=== PATIENT | female | born 1925 | race Caucasian/White ===

== ENCOUNTER 2017-03-27 11:48 | Inpatient (IN) ==
--- NOTE | 2017-03-27 13:16 | CT ---
EXAM: CT chest without contrast HISTORY: Pain COMPARISON: None TECHNIQUE: CT chest performed without intravenous contrast. Coronal and sagittal reformatted images obtained. FINDINGS: Thyroid and thoracic inlet appear normal. Heart normal in size. Coronary calcifications. No pericardial effusion. Aorta normal in caliber. Moderate atherosclerosis. Bilateral renal cysts . Visualized portion upper abdomen demonstrates no acute abnormality. No acute abnormalities of the bones. Degenerative change in the spine. Small stable sclerotic focus right posterior ninth rib, li danay bone island. Mild chronic loss of height L1. Central airway patent. No airspace consolidation . No pleural effusion. No pneumothorax. Mild bibasilar subsegmental atelectasis and/or scarring. Mild chronic elevation left hemidiaphragm. IMPRESSION: 1. Mild bibasilar subsegmental atelectasis and/or scarring. No airspace consolidation. 2. Coronary calcifications. Atherosclerosis.
--- NOTE | 2017-03-27 14:05 | ED.PDOC ---
General ED Provider: Dr. MARTINE FONSECA Chief Complaint: Chest Wall Injury/Pain Stated Complaint: left sided chest wall pain Time Seen by Physician: 12:00 (left chest wall pain entirely reproduceable) Mode of Arrival: Ambulance Information Source: Patient, EMT Exam Limitations: No limitations Primary Care Provider: NELL UGARTE Nursing and Triage Documentation Reviewed and Agree: Yes Reviewed sepsis parameters & appropriate labs ordered?: Yes System Inflammatory Response Syndrome: Not Applicable Sepsis Protocol: For patient's 13 years and over: Temp is 96.8 and below OR 101 and greater Pulse >90 BPM Resp >20/minute Acutely Altered Mental Status Are patient's symptoms suggestive of a new infection, such as: -Pneumonia -Skin, Soft Tissue -Endocarditis -UTI -Bone, Joint Infection -Implantable Device -Acute Abdominal Infection -Wound Infection -Meningitis -Blood Stream Catheter Infection -Unknown System Inflammatory Response Syndrome: Not Applicable Cardiovascular Complaint Exam - Chest Pain Complaint/Exam Onset: Gradual Duration: present x 1 week Symptoms Are: Still present Timing: Constant Length of Chest Pain Episodes: constant Initial Severity: Mild Current Severity: Mild Location: Reports: Discrete (left chest reproduceable) Pain Radiates: Reports: None Character: Reports: Aching Aggravating: Reports: None Alleviating: Reports: None Associated Signs and Symptoms: Denies: Diaphoresis, Nausea, Vomiting, Fever, Palpitations, Cough, Hemoptysis, Back pain, Abdominal pain, Dizziness, Short of air, Calf pain, Calf swelling Related History: Reports: Similar episode AMI/ACS Risk Factors: Reports: Hypertension TAD Risk Factors: Reports: Hypertension Pulmonary Embolism Risk Factors: Reports: None Prior Care for this Complaint: No Recent Stress Test: No Recent Echo/LV Function: No JVD Present: No Subcutaneous Emphysema Present: No Diminshed Breath Sounds: No Reproducible Chest Wall Pain: No Bilateral Pulses Present: No Unequal Pulses Noted: No If Risk Factors for AMI/ACS Consider: EKG, Cardiac Enzymes Differential Diagnoses: Stable Angina, CHF, GI Diseasae Quality Indicators For Acute ID or Cardiac Chest Pain: EKG in 10min. Review of Systems - Review Of Systems Constitutional: Reports: No symptoms Eyes: Reports: No symptoms Ears, Nose, Mouth, Throat: Reports: No symptoms Respiratory: Reports: No symptoms Cardiac: Reports: Chest pain GI: Reports: No symptoms : Reports: No symptoms Musculoskeletal: Reports: No symptoms Skin: Reports: No symptoms Neurological: Reports: No symptoms Endocrine: Reports: No symptoms Hematologic/Lymphatic: Reports: No symptoms All Other Systems: Reviewed and Negative Past Medical History - Past Medical History Previously Healthy: Yes Endocrine: Reports: Dyslipidemia Cardiovascular: Reports: Hypertension, A-Fib, Other (irreg. hb) Respiratory: Reports: None Hematological: Reports: None Gastrointestinal: Reports: GERD (medications) Genitourinary: Reports: None Neuro/Psych: Reports: Other Musculoskeletal: Reports: Arthritis Cancer: Reports: None Last Menstrual Period: NA Other Pertinent Past Medical History: muscular distrophy (Ruth Charcot Tooth) - Surgical History General Surgical History: Reports: Hysterectomy, Appendectomy, Other (bilateral cataract removal, polypectomy), Unknown - Family History Family History: Reports: Unknown - Social History Smoking Status: Never smoker Hx Substance Use: No Alcohol Screening: None - Immunizations Tetanus Shot up to Date: No Physical Exam - Physical Exam Appearance: Well-appearing, No pain distress, Well-nourished Eyes: FRANCISCO JAVIER, EOMI, Conjunctiva clear ENT: Ears normal, Nose normal, Oropharynx normal Respiratory: Airway patent, Breath sounds clear, Breath sounds equal, Respirations nonlabored Cardiovascular: RRR, Pulses normal, No rub, No murmur GI/: Soft, Nontender, No masses, Bowel sounds normal, No Organomegaly Musculoskeletal: Normal strength, ROM intact, No edema, No calf tenderness Skin: Warm, Dry, Normal color Neurological: Sensation intact, Motor intact, Reflexes intact, Cranial nerves intact, Alert, Oriented Psychiatric: Affect appropriate, Mood appropriate Interpretation - Radiology Interpretation Radiology Interpretation By: Radiologist Radiology Results: No acute changes - [facility] Rate: Normal Rhythm: Sinus Ectopy: None - EKG Interpretation Rate: Normal Rhythm: Sinus Ectopy: None [place]: NL ST Segment: Normal Physician Notification - Case Discussed Physician Notified: 0 Critical Care Note - Critical Care Note Total Time (mins): 0 Course - Course Hematology/Chemistry: 03/27/17 12:25 03/27/17 12:25 Orders, Labs, Meds: Lab Review 03/27/17 03/27/17 03/27/17 12:25 12:25 12:25 WBC 7.09 RBC 4.04 L Hgb 14.3 Hct 41.4 MCV 102.5 H MCH 35.4 H MCHC 34.5 RDW Coeff of Agueda 11.9 Plt Count 230 Immature Gran % (Auto) 0.8 Neut % (Auto) 71.0 Lymph % (Auto) 19.0 Emery % (Auto) 7.5 Eos % (Auto) 1.4 Baso % (Auto) 0.3 Immature Gran # (Auto) 0.1 Neut # 5.0 Lymph # 1.4 Emery # 0.5 Eos # 0.1 Baso # 0.0 Sodium 139 Potassium 3.7 Chloride 101 Carbon Dioxide 33 H Anion Gap 8.7 BUN 17 Creatinine 0.70 Estimated GFR (MDRD) 79.00 BUN/Creatinine Ratio 24.28 Glucose 103 Calcium 10.6 H Total Bilirubin 0.8 AST 23 ALT 19 Alkaline Phosphatase 95 Total Creatine Kinase 34 Troponin I Pending B-Natriuretic Peptide 85 Total Protein 6.7 Albumin 4.2 Globulin 2.5 Albumin/Globulin Ratio 1.68 Influenza A (Rapid) Influenza B (Rapid) 03/27/17 12:50 WBC RBC Hgb Hct MCV MCH MCHC RDW Coeff of Agueda Plt Count Immature Gran % (Auto) Neut % (Auto) Lymph % (Auto) Emery % (Auto) Eos % (Auto) Baso % (Auto) Immature Gran # (Auto) Neut # Lymph # Emery # Eos # Baso # Sodium Potassium Chloride Carbon Dioxide Anion Gap BUN Creatinine Estimated GFR (MDRD) BUN/Creatinine Ratio Glucose Calcium Total Bilirubin AST ALT Alkaline Phosphatase Total Creatine Kinase Troponin I B-Natriuretic Peptide Total Protein Albumin Globulin Albumin/Globulin Ratio Influenza A (Rapid) Negative by naat Influenza B (Rapid) Negative by naat Orders Category Date Time Status EKG-(ED ONLY) Stat CARDIO 03/27/17 12:13 Completed B-TYPE NATRIURETIC PEPTIDE Stat LAB 03/27/17 12:25 Completed CBC W/ AUTO DIFF Stat LAB 03/27/17 12:25 Completed COMPREHENSIVE METABOLIC PANEL Stat LAB 03/27/17 12:25 Results CREATINE KINASE Stat LAB 03/27/17 12:25 Results FLU A/B MOLECULAR Stat LAB 03/27/17 12:50 Completed TROPONIN I Stat LAB 03/27/17 12:[address] CHEST W/O CONTRAST Stat RADS 03/27/17 12:13 Completed Vital Signs: Temp Pulse Resp BP Pulse Ox 03/27/17 11:51 98.4 F 74 16 153/76 H 98 CHADWICK Risk Score CHADWICK Risk Score: Risk Score Odds of by 30D 0 0.1 (0.1-0.2) 1 0.3 (0.2-0.3) 2 0.4 (0.3-0.5) 3 0.7 (0.6-0.9) 4 1.2 (1.0-1.5) 5 2.2 (1.9-2.6) 6 3.0 (2.5-3.6) 7 4.8 (3.8-6.1) Departure - Departure Time of Disposition: 14:06 Disposition: ADMITTED INPATIENT Discharge Problem: Chest pain Qualifiers: Chest pain type: unspecified Qualified Code(s): R07.9 - Chest pain, unspecified Instructions: Angina (ED) Condition: Good Pt referred to PMD for follow-up: Yes IPMP verified?: Yes Additional Instructions: Please call your Family Physician as soon as possible to schedule a follow-up appointment. Allergies/Adverse Reactions: Allergies No Known Allergies Allergy (Verified 03/27/17 12:02) Home Medications: Ambulatory Orders Brimonidine Tartrate Opth [Alphagan P 0.15%] 1 drop INTRAOCULA BEDTIME 03/14/14 Calcium Carbonate/Vitamin D3 [Calcium 600 + Vit D Caplet] 600 unit PO BID Olmesartan/Hydrochlorothiazide [Benicar Hct 40-25 mg Tablet] 1 each PO DAILY 06/23 Potassium Chloride [Klor-Con 10] 10 meq PO DAILY 03/14/14 Travoprost Opth [Travatan Z] 1 drop INTRAOCULA BEDTIME 03/14/14 Sotalol HCl [Sotalol] 40 mg PO BID 03/24/14 Magnesium Hydroxide [Milk of Magnesia] 30 ml PO DAILY PRN 04/25/14 Pravastatin Sodium 80 mg PO BEDTIME 04/25/14 Pantoprazole Sodium [Protonix] 40 mg PO DAILY 06/01/14 Bepotastine Besilate [Bepreve] 1 drop OP BEDTIME 10/12/15 Multivit-Min/FA/Lycopen/Lutein [Centrum Silver Tablet] 1 each PO DAILY 10/12/15 Amlodipine Besylate [Norvasc] 5 mg PO BEDTIME #30 tablet 02/21/16
[2017-03-27 17:42] VITALS: BMI 22.2
[2017-03-27] MEDS: SODIUM CHLORIDE 1,000 ML IV SCH (18:00)
[2017-03-27] MEDS ORDERED: DECADRON 4 MG/ML SDV IM STA (19:41)
[2017-03-27] MEDS ORDERED: NON-FORMULARY MEDICATION (Pravastatin Sodium [Pravastatin Sodium] 80 MG) PO SCH (21:00)
[2017-03-27] MEDS ORDERED: [UNRECOGNIZED DRUG - OTHER] INTRAOCULA SCH (21:00)
[2017-03-27] MEDS: BETAPACE PO SCH (22:05)
[2017-03-27] MEDS: NORVASC PO SCH (22:06)
[2017-03-27] MEDS: PRAVACHOL PO SCH (22:06)
[2017-03-27] MEDS: TORADOL IVP SCH (22:06)
[2017-03-27] MEDS: TRAVATAN Z OP SCH (22:07)
[2017-03-27] MEDS: BRIMONIDINE TARTRATE 0.2% OPTH SOL OP SCH (22:07)
[2017-03-27] MEDS: BEPOTASTINE BESILATE OP SCH (22:08)
[2017-03-28] MEDS: TORADOL IVP SCH ×3 (04:15→22:21)
[2017-03-28] MEDS: PROTONIX PO SCH (07:48)
[2017-03-28] MEDS ORDERED: NON-FORMULARY MEDICATION (Potassium Chloride [Klor-Con 10] 10 MEQ) PO SCH (09:00)
[2017-03-28] MEDS ORDERED: NON-FORMULARY MEDICATION (Olmesartan/Hydrochlorothiazide [Benicar Hct 40-25 Mg Tablet] 1 E PO SCH (09:00)
[2017-03-28] MEDS: BETAPACE PO SCH ×2 (09:31→21:50)
[2017-03-28] MEDS: HYDROCHLOROTHIAZIDE PO SCH (09:31)
[2017-03-28] MEDS: BENICAR PO SCH (09:31)
--- NOTE | 2017-03-28 10:06 | PCM.PROG ---
Attending Provider: ATTENDING PROVIDER: Dr. NELL UGARTE This patient is seen with Charlette Rojas, Nurse Practitioner. DATE OF SERVICE: 03/28/17 SUBJECTIVE: This 89 year old WHITE/ F was hospitalized 03/27/17. The patient is sitting up in bed eating breakfast. She states pain is improved, chest pain is atypical more like sternal pain. The patient had a fall on 03/13/17. CT scan was normal. No rib x-ray done. No shortness of breath. REVIEW OF SYSTEMS: CONSTITUTIONAL: Weakness. No night sweats. No fever or chills. HEENT: Eyes: No visual changes. No eye pain. No eye discharge. ENT: No runny nose. No epistaxis. No sinus pain. No odynophagia. No congestion. RESPIRATORY: No cough, no congestion. No hemoptysis. No shortness of breath. CARDIOVASCULAR: No angina symptoms. No CHF symptoms. No atypical chest pain for CAD. No palpitations. No orthopnea.. GASTROINTESTINAL: No abdominal pain. No nausea or vomiting. No diarrhea or constipation. No hematemesis. No hematochezia. GENITOURINARY: No urgency. No frequency. No dysuria. No hematuria. No obstructive symptoms. No discharge. No pain. No significant abnormal bleeding. MUSCULOSKELETAL: Muscular pain. NEUROLOGICAL: Awake, alert, oriented to time, place and person. No headache. No neck pain. No syncope. No seizures. No dizziness. PSYCHIATRIC: Not anxious. No depression. No suicidal thoughts. No homicidal thoughts. SKIN: No rash. No lesions. No wounds. ENDOCRINE: No unexplained weight loss. No weight gain. HEMATOLOGIC/LYMPHATIC: No anemia. No purpura. No petechiae. No prolonged or excessive bleeding. No palpable lymph nodes. PHYSICAL EXAMINATION: GENERAL: The patient is awake, alert and oriented, lying in bed in no distress. VITAL SIGNS: Temperature 97.0 F, Pulse 68, Respiratory Rate 24, BP 146/72, Pulse Ox 96% HEENT: Head normocephalic, atraumatic. Eyes: Extraocular muscles are intact. Pupils are equal, round and reactive to light and accommodation. Ears: No lesions. Nose appeared normal. Throat: No exudate or erythema. NECK: Supple. No JVD, no carotid bruit. No lymphadenopathy or thyromegaly. LUNGS: Diminished breath sounds bilaterally. Clear to auscultation. Percussion note normal. Chest symmetrical. HEART: S1, S2, no S3. No murmurs. No cyanosis or clubbing. No ascites. Pulses: Dorsalis pedis and posterior tibial pulses +1 to +2 both sides. ABDOMEN: Soft. Non-tender. Bowel sounds active. No CVA tenderness. No mass felt. EXTREMITIES: No edema. Full range of motion of all extremities, equal. NEUROLOGIC: Leg weakness due to muscular dystrophy. No focal deficit. Cranial nerves II through XII are grossly intact. No headache, no double vision or headache. SKIN: Not dry. Intact. Turgor-normal. LYMPHATIC: No palpable lymph nodes/no lymphedema. MUSCULOSKELETAL: Normal joints with no swelling. Muscle tone is normal. LAB REVIEW: 03/28/17 04:30 03/28/17 04:30 03/28/17 04:30: Sodium 137, Potassium 3.7, Chloride 102, Carbon Dioxide 24 D, Anion Gap 14.7, BUN 18, Creatinine 0.60, Estimated GFR (MDRD) 94.00, BUN/ Creatinine Ratio 30.00, Glucose 166 H D, Calcium 9.8, Total Bilirubin 0.7, AST 19, ALT 18, Alkaline Phosphatase 83, Total Protein 6.3, Albumin 4.0, Globulin 2.3, Albumin/Globulin Ratio 1.74 03/28/17 04:30: WBC 5.03, RBC 3.81 L, Hgb 13.4, Hct 39.6, MCV 103.9 H, MCH 35.2 H, MCHC 33.8, RDW Coeff of Agueda 11.9, Plt Count 169, Immature Gran % (Auto) 0.6, Neut % (Auto) 83.3, Lymph % (Auto) 14.5, [place] % (Auto) 1.2, Eos % (Auto) 0.2, Baso % (Auto) 0.2, Immature Gran # (Auto) 0.0, Neut # 4.2, Lymph # 0.7, [place] # 0.1 L, Eos # 0.0, Baso # 0.0 03/28/17 04:30: Total Creatine Kinase 23, Troponin I < 0.0100 03/27/17 20:00: Total Creatine Kinase 27, Troponin I 0.0140 ASSESSMENT: 1. Sternal pain 2. S/P fall 3. Generalized weakness due to muscular dystrophy PLAN: 1. X-ray of bilateral ribs Plan and coordination of the patient's care discussed in the presence of Medicinal Plant Picker and nurse. CONDITION: Stable SCRIBED BY: ARA JEFFERSON Yard Pilot scribed while in presence of service performed by Dr. Ugarte/Charlette Rojas APRN on 03/28/17 ([id number])
[2017-03-28] MEDS: MICRO-K CAP PO SCH (12:10)
--- NOTE | 2017-03-28 12:30 | DI ---
EXAM: Bilateral ribs HISTORY: Bilateral rib pain following a fall COMPARISON: None TECHNIQUE: Multiple views bilateral ribs were performed FINDINGS: No rib fracture identified. No visible pneumothorax. IMPRESSION: No rib fracture identified.
--- NOTE | 2017-03-28 15:49 | RS.OTINEVL ---
Subjective - Patient information Date of Evaluation: 03/28/17 Date of Arrival on Unit: 03/27/17 Admitted From:: Home Usual Living Arrangement: Alone Living Arrangement Comments: pt has paid caregivers 7 am to 7 pm and is alone the rest of time. [facility] staff provides meals. Home Environment: Level/No stairs Medical History: Hypertension Medical History Comments:: afib, GERD, muscular dystrophy charcot tooth, LATEX ALLERGY?: No Surgical History: Hysterectomy Medications: see chart Subjective Information/ Patient Comments:: "I have to have help to move or transfer. If I could get to where I could transfer better it would be good." - Level of function Prior to this admission, the patient could do the following:: Partially Dependent Ambulation Abilities prior to this admission: Pt has assistance in her assisted living apartment 7 a.m. to 7 p.m. Pt requires assistance with ADLS. Current Equipment Used at Home: electric w/c, shoe braces Pain Assessment - Pain Pain Score: 7 Side: left Pain Location Body Site: Ribs Pain Aggravating Factors: Changing Position Pain Alleviating Factors: Medication, Position Change Interventions - Objective Patient Orientation: Person, Place, Time, Situation Current Interventions: IV's, Telemetry Observation: Pt is reluctant to complete transfers today due to her rib pain. Pt wants to wait until results are back from her x-ray. Pt has atrophy in BLE due to Muscular dystrophy. Interventions - ROM Right Upper Extremity AROM: WFL's Left Upper Extremity AROM: WFL's - Strength Right Upper Extremity Strength: Mild Weakness Left Upper Extremity Strength: Mild Weakness - Sensation Right Upper Extremity Sensation: Intact/Normal Left Upper Extremity Sensation: Intact/Normal Balance - Sitting Balance Static Sitting Balance: Fair Dynamic Sitting Balance: Fair ADL Skills - Grooming Grooming: Min Assist - Bathing Bathing UE: Min Assist Bathing LE: Max Assist - Dressing Dressing UE: Min Assist Dressing LE: Max Assist - Toilet Management Toileting Management: Max Assist Functional Mobility - Bed Mobility Rolling R/L: Min Assist Scooting: Min Assist Supine to Sit: CGA Sit to Supine: Min Assist - Transfers Sit to Stand: Not Tested Stand to Sit: Not Tested Stand Pivot Transfers: Not Tested - Ambulation Assistance needed with Ambulation: Not Tested - Safety Awareness Safety Awareness: Good Additional Treatment Performed - Time with patient Total treatment time: 32 Activities Patient Interests:: Watching Television, Visiting/Socializing Patient Education Patient Education: Education of diagnosis, Home Safety, Education of Plan of Care Teaching Recipient: Patient Teaching Methods: Discussion Assessment Problem List:: Decreased level of function Rehab Potential: Good Further Therapy Indicated?: Yes Short Term Goals - Goals GOAL 1: Pt to tolerate stand pivot transfer moderate assist of 2 from EOB to chair. Goal to be met by: 04/04/17 GOAL 2: Pt to increase strength of BUE to 4/5. Goal to be met by: 04/04/17 Progress towards goal: No Change GOAL 3: Pt to increase toileting to moderate assistance. Goal to be met by: 04/04/17 Senior Military Analyst Goals GOAL 1: Pt to tolerate stand pivot transfer CGA from EOB to chair. Goal to be met by: 04/10/17 GOAL 2: Pt to increase strength of BUE to 4+/5. Goal to be met by: 04/10/17 GOAL 3: Pt to increase toileting to minimal assistance. Goal to be met by: 04/10/17 Plan Plan of Care: Therapeutic EX, Neuromuscular Re-Educ, Therapeutic Activity, Self- Care/Home Management Frequency of Treatment: 1-2 X day, as tolerated Duration of Treatment: 2 Weeks Anticipated Discharge Destination: Home Has the Physician been added for Co-signature?: Yes
--- NOTE | 2017-03-28 16:37 | RS.PTINEVL ---
Subjective - Patient information Date of Evaluation: 03/28/17 Date of Arrival on Unit: 03/27/17 Admitted From:: Home Diagnosis: chest wakk njury, Usual Living Arrangement: Alone Living Arrangement Comments: pt has paid caregivers 7 am to 7 pm and is alone the rest of time. [employer] staff provides meals. Home Environment: Level/No stairs Medical History: Hypertension Medical History Comments:: afib, GERD, muscular dystrophy charcot tooth, LATEX ALLERGY?: No Surgical History: Hysterectomy Medications: see chart Subjective Information/ Patient Comments:: pt states she had a fall on 03/13/17 and has had to have paid caregivers since the fall to assist with bathing, transfers, etc. - Level of function Abilities prior to this admission: pt had been able to transfer w/c to/from bed independently prior to 03/13/17. Prior to admit pt required assist of 1-2 for all transfers. Current Level of Function: Dependent Current Equipment Used at Home: w/c, rwx, power w/c, B AFO's Pain Assessement - Location ribs Description: Acute Intensity: 5 Pain Behavior: Guarding, Grasping Site, Rubbing Site, Facial Grimacing Pain Aggravating Factors: Changing Position, Exercise/Activity Pain Alleviating Factors: Medication Interventions - Objective Patient Orientation: Person, Place, Time, Situation Current Interventions: Telemetry Range of Motion - ROM Right Upper Extremity AROM: WFL's Left Upper Extremity AROM: WFL's Right Lower Extremity AROM: Slight limitation Left Lower Extremity AROM: Slight limitation Comments:: slight decrease hip ext Muscle Strength - Muscle Strength Right Upper Extremity Strength: Mild Weakness (grossly 4+/5) Left Upper Extremity Strength: Mild Weakness (grossly 4+/5) Right Lower Extremity Strength: Severe Weakness (hip flex 3-/5, knee flex 3-/5, ext 2+/5, ankle DF/PF no active mvmt) Left Lower Extremity Strength: Severe Weakness (hip flex 3-/5, knee flex 3-/5, ext 2+/5, ankle DF/PF no active mvmt) Sensation - Sensation Right Upper Extremity Sensation: Intact/Normal Left Upper Extremity Sensation: Intact/Normal Right Lower Extremity Sensation: Intact/Normal Left Lower Extremity Sensation: Intact/Normal Palpation Palpation Findings: Tenderness Comments:: B ribs Balance - Sitting Balance and Reactions Static Sitting Balance: Good (pt unable to stand at this time.) Dynamic Sitting Balance: Good Sitting Equilibrium Reactions: Within Normal Limits Left, Within Normal Limit Right Sitting Protective Reactions: Within Normal Limits Left, Within Normal Limit Right Functional Mobility - Bed Mobility Rolling R/L: Min Assist Scooting: Min Assist Supine to Sit: Min Assist Sit to Supine: Min Assist - Transfers Comments:: sit to/from stand not tested due to patient request due to pain in ribs. - Safety Awareness Safety Awareness: Fair Treatment time - Time with patient Total treatment time: 32 Patient Education - Education Patient Education: Home Safety, Activity Modification, Education of Plan of Care Teaching Recipient: Patient Teaching Methods: Discussion (Long discussion with patient regarding home safety as well as POC ) Assessment - Assessment Problem List:: Decreased level of function, Requires training/education, Decreased safety/Risk of falls, Weakness, Pain limits previous level of function Rehab Potential: Good Further Therapy Indicated?: Yes Comments: Feel pt may benefit from use of sliding board to aide in transfers. Short Term Goals GOAL #1: pt demonstrate independence with rolling and scooting up in bed. Goal to be met by: 03/31/17 GOAL #2: pt transfer sup to/from sit CGA, sit to/from stand mod to max of 2 Goal to be met by: 03/31/17 GOAL #3: Transfer bed to/from chair with sliding board with mod of 2 Goal to be met by: 03/31/17 Half-Way Goals GOAL #1: pt transfer sup to/from sit SBA sit to/from stand mod x 1 Goal to be met by: 04/03/17 GOAL #2: pt transfer bed to/from chair with sliding board with mod x 1 Goal to be met by: 04/03/17 GOAL #3: maintain dyn sitting balance reaching across midline and with resistance Goal to be met by: 04/03/17 Plan Plan of Care: Therapeutic EX, Therapeutic Activity, Self-Care/Home Management Frequency of Treatment: 1-2 X day, as tolerated Duration of Treatment: 6 days Anticipated Discharge Destination: Home Has the Physician been added for Co-signature?: Yes
[2017-03-28] MEDS: SODIUM CHLORIDE 1,000 ML IV SCH (19:16)
[2017-03-28] MEDS: BRIMONIDINE TARTRATE 0.2% OPTH SOL OP SCH (21:50)
[2017-03-28] MEDS: TRAVATAN Z OP SCH (21:50)
[2017-03-28] MEDS: PRAVACHOL PO SCH (21:51)
[2017-03-28] MEDS: NORVASC PO SCH (21:51)
[2017-03-28] MEDS: BEPOTASTINE BESILATE OP SCH (21:52)
[2017-03-29] MEDS: PROTONIX PO SCH (05:57)
[2017-03-29] MEDS: TORADOL IVP SCH ×2 (05:57→13:08)
[2017-03-29] MEDS: HYDROCHLOROTHIAZIDE PO SCH (08:36)
[2017-03-29] MEDS: BENICAR PO SCH (08:37)
[2017-03-29] MEDS: MICRO-K CAP PO SCH (08:37)
[2017-03-29] MEDS: BETAPACE PO SCH (08:37)
[2017-03-29] MEDS ORDERED: MIRALAX PO PRN (09:24)
--- NOTE | 2017-03-29 10:32 | PCM.PROG ---
Attending Provider: ATTENDING PROVIDER: Dr. NELL TOBIN This patient is seen with Charlette Rojas, Nurse Practitioner. DATE OF SERVICE: 03/29/17 SUBJECTIVE: This 89 year old WHITE/ F was hospitalized 03/27/17. The patient is sitting up in bed, alert. She states pain is about the same. X-rays and CT scans are normal. REVIEW OF SYSTEMS: CONSTITUTIONAL: No night sweats. Weakness. No fever or chills. HEENT: Eyes: No visual changes. No eye pain. No eye discharge. ENT: No runny nose. No epistaxis. No sinus pain. No odynophagia. No congestion. RESPIRATORY: No cough, no congestion. No hemoptysis. No shortness of breath. CARDIOVASCULAR: No angina symptoms. No CHF symptoms. No atypical chest pain for CAD. No palpitations. No orthopnea.. GASTROINTESTINAL: No abdominal pain. No nausea or vomiting. No diarrhea or constipation. No hematemesis. No hematochezia. GENITOURINARY: No urgency. No frequency. No dysuria. No hematuria. No obstructive symptoms. No discharge. No pain. No significant abnormal bleeding. MUSCULOSKELETAL: Bilateral leg weakness due to atrophy. NEUROLOGICAL: Awake, alert, oriented to time, place and person. No headache. No neck pain. No syncope. No seizures. No dizziness. PSYCHIATRIC: Not anxious. No depression. No suicidal thoughts. No homicidal thoughts. SKIN: No rash. No lesions. No wounds. ENDOCRINE: No unexplained weight loss. No weight gain. HEMATOLOGIC/LYMPHATIC: No anemia. No purpura. No petechiae. No prolonged or excessive bleeding. No palpable lymph nodes. PHYSICAL EXAMINATION: GENERAL: The patient is awake, alert and oriented, sitting in bed in no distress. VITAL SIGNS: Temperature 96.5 F, Pulse 61, Respiratory Rate 16, BP 161/76, Pulse Ox 97% HEENT: Head normocephalic, atraumatic. Eyes: Extraocular muscles are intact. Pupils are equal, round and reactive to light and accommodation. Ears: No lesions. Nose appeared normal. Throat: No exudate or erythema. NECK: Supple. No JVD, no carotid bruit. No lymphadenopathy or thyromegaly. LUNGS: Diminished breath sounds bilaterally. Clear to auscultation. Percussion note normal. Chest symmetrical. HEART: S1, S2, no S3. No murmurs. No cyanosis or clubbing. No ascites. Pulses: Dorsalis pedis and posterior tibial pulses +1 to +2 both sides. ABDOMEN: Soft. Non-tender. Bowel sounds active. No CVA tenderness. No mass felt. EXTREMITIES: No edema. Full range of motion of all extremities, equal. NEUROLOGIC: No focal deficit. Cranial nerves II through XII are grossly intact. No headache, no double vision or headache. SKIN: Not dry. Intact. Turgor-normal. LYMPHATIC: No palpable lymph nodes/no lymphedema. MUSCULOSKELETAL: Normal joints with no swelling. Muscle tone is normal. LAB REVIEW: 03/29/17 05:30 03/29/17 05:30 03/29/17 05:30: Sodium 138, Potassium 3.5, Chloride 102, Carbon Dioxide 28, Anion Gap 11.5, BUN 24 H, Creatinine 0.78, Estimated GFR (MDRD) 70.00, BUN/ Creatinine Ratio 30.76, Glucose 117 H, Calcium 9.5, Total Bilirubin 0.6, AST 19 , ALT 18, Alkaline Phosphatase 77, Total Protein 6.4, Albumin 3.4, Globulin 3.0 , Albumin/Globulin Ratio 1.13 03/29/17 05:30: WBC 6.83, RBC 3.68 L, Hgb 13.2, Hct 37.8, MCV 102.7 H, MCH 35.9 H, MCHC 34.9, RDW Coeff of Agueda 11.9, Plt Count 170, Immature Gran % (Auto) 1.0, Neut % (Auto) 70.5, Lymph % (Auto) 20.1, [place] % (Auto) 7.6, Eos % (Auto) 0.7, Baso % (Auto) 0.1, Immature Gran # (Auto) 0.1, Neut # 4.8, Lymph # 1.4, [place] # 0.5, Eos # 0.1, Baso # 0.0 ASSESSMENT: 1. Sternal pain 2. S/P fall 3. Generalized weakness due to muscular dystrophy PLAN: 1. Discharge back to [facility] 2. Tramadol 50 mg t.i.d. p.r.n. 3. Psychiatric Health Plan and coordination of the patient's care discussed in the presence of Peanut Picker and nurse. CONDITION: Stable SCRIBED BY: ARA JEFFERSON, Cash Posting Representative scribed while in presence of service performed by Dr. Tobin/Charlette Rojas, SHALA on 03/29/17 ([id number])
[2017-03-29 10:41] VITALS: BP 128/67; TEMP 98.5
--- NOTE | 2017-03-29 13:12 | PN ---
DATE OF SERVICE: 03/27/17 SUBJECTIVE: The patient came to the emergency room with chest pain and left arm pain. The patient's other problem is weakness of the lower extremities. She is not able to transfer. She has muscular dystrophy getting worse. Her respiratory muscles are also getting weak. REVIEW OF SYSTEMS: CONSTITUTIONAL: No night sweats. No fatigue, malaise, lethargy. No fever or chills. HEENT: Eyes: No visual changes. No eye pain. No eye discharge. ENT: No runny nose. No epistaxis. No sinus pain. No sore throat. No odynophagia. No congestion. RESPIRATORY: No cough, no congestion. No hemoptysis. No shortness of breath. CARDIOVASCULAR: No angina symptoms. No CHF symptoms. No atypical chest pain for CAD. No palpitations. No orthopnea. GASTROINTESTINAL: No abdominal pain. No nausea or vomiting. No diarrhea or constipation. No hematemesis. No hematochezia. GENITOURINARY: No urgency. No frequency. No dysuria. No hematuria. No obstructive symptoms. No discharge. No pain. No significant abnormal bleeding. MUSCULOSKELETAL: No musculoskeletal pain; no joint swelling. NEUROLOGICAL: No headache. No neck pain. No syncope. No seizures. No dizziness. PSYCHIATRIC: Not anxious. No depression. No suicidal thoughts. No homicidal thoughts. SKIN: No rash. No lesions. No wounds. ENDOCRINE: No unexplained weight loss. No weight gain. HEMATOLOGIC/LYMPHATIC: No anemia. No purpura. No petechiae. No prolonged or excessive bleeding. No palpable lymph nodes. PHYSICAL EXAMINATION: HEENT: Head normocephalic, atraumatic. Eyes: Extraocular muscles are intact. Pupils are equal, round and reactive to light and accommodation. Ears: No lesions. Nose appeared normal. Throat: No exudate or erythema. NECK: Supple. No JVD, no carotid bruit. No lymphadenopathy or thyromegaly. LUNGS: Clear to auscultation. Percussion note normal. Chest symmetrical. HEART: S1, S2, no S3. No murmurs. No cyanosis or clubbing. No ascites. Pulses: Dorsalis pedis and posterior tibial pulses +1 to +2 both sides. ABDOMEN: Soft. Nontender. Bowel sounds active. No CVA tenderness. No mass felt. EXTREMITIES: No edema. Full range of motion of all extremities, equal. NEUROLOGIC: No focal deficit. Cranial nerves II through XII are grossly intact. No headache, no double vision or headache. SKIN: Not dry. Intact. Turgor - normal. LYMPHATIC: No palpable lymph nodes/no lymphedema. MUSCULOSKELETAL: Normal joints with no swelling. Muscle tone is normal. LABS: EKG sinus rhythm with no acute changes. Cardiac markers are negative. ASSESSMENT: 1. Chest pain etiology unknown 2. Muscular dystrophy muscle weakness getting worse. PLAN: 1. Will put her on observation to rule out acute marker event or ischemia TIME SPENT: More than 30 minutes. Plan and coordination of the patient's care discussed in the presence of nurse. LINDSEY
--- NOTE | 2017-03-29 13:15 | PN ---
DATE OF SERVICE: 03/28/17 SUBJECTIVE: The patient was hospitalized with left sided chest pain. The patient's cardiac status is normal with normal cardiac markers. Her problem is muscular dystrophy. She is being given Toradol and steroids. On physical therapy. The patient was seen and examined with Nurse Practitioner. PROGNOSIS: Guarded. TIME SPENT: More than 30 minutes. Plan and coordination of the patient's care discussed in the presence of nurse. LINDSEY
--- NOTE | 2017-03-29 13:27 | CM.DICTOOL ---
ADMISSION: 03/27/17 17:03 DISCHARGE: 2017 DATE OF SERVICE: 03/29/17 FINAL DIAGNOSIS CHEST PAIN S/P FALL (03/13) HYPERTENSION COPD MUSCULAR DYSTROPHY, 1960 DYSLIPIDEMIA OSTEOARTHRITIS CATARACTS APPENDECTOMY LAST VITALS Temp Pulse Resp BP Pulse Ox 98.5 F 58 L 24 128/67 100 03/29/17 10:00 03/29/17 10:00 03/29/17 10:00 03/29/17 10:00 03/29/17 10:00 ACTIVE HOME MEDICATIONS Amlodipine Besylate (Norvasc) 5 mg PO BEDTIME [facility] Last Admin: 03/28/17 21:51 Dose: 5 mg Brimonidine Tartrate (Brimonidine Tartrate 0.2% Opth Blanca) 1 drop OP BEDTIME [facility] Last Admin: 03/28/17 21:50 Dose: 1 drop Hydrochlorothiazide (Hydrochlorothiazide) 25 mg PO DAILY [facility] Last Admin: 03/29/17 08:36 Dose: 25 mg Multivitamin/Lycopen/Lutein (Centrum Silver Tablet) 1 DAILY Last Admin: Magnesium Hydroxide (Milk of Magnesia) 30 ml DAILY PRN Last Admin: Calcium Carbonate/Vitamin D3 600 units PO BID Last Admin: Non-Formulary Medication (Bepotastine Besilate [Bepreve]) 1 drop OP BEDTIME [facility] Last Admin: 03/28/17 21:52 Dose: Not Given Olmesartan (Benicar) 40 mg PO DAILY [facility] Last Admin: 03/29/17 08:37 Dose: 40 mg Pantoprazole Sodium (Protonix) 40 mg PO QDAC [facility] Last Admin: 03/29/17 05:57 Dose: 40 mg Potassium Chloride (Micro-K Cap) 10 meq PO DAILYWM [facility] Last Admin: 03/29/17 08:37 Dose: 10 meq Pravastatin Sodium (Pravachol) 80 mg PO BEDTIME [facility] Last Admin: 03/28/17 21:51 Dose: 80 mg Sotalol HCl (Betapace) 40 mg PO BID [facility] Last Admin: 03/29/17 08:37 Dose: 40 mg Travoprost (Travatan Z) 1 drop OP BEDTIME [facility] Last Admin: 03/28/17 21:50 Dose: 1 drop ALLERGIES No Known Allergies Allergy (Verified 03/27/17 12:02) NEW PRESCRIPTIONS: Prednisone 10 mg BID for 5 days Tramadol 50 mg TID prn for pain SMOKING: Not Applicable DISEASE SPECIFIC EDUCATION: Steroids and risk of GI irritation and bone demineralization Prescriptions Home Health LAB REVIEW: 03/29/17 05:30 03/29/17 05:30 03/29/17 05:30: Sodium 138, Potassium 3.5, Chloride 102, Carbon Dioxide 28, Anion Gap 11.5, BUN 24 H, Creatinine 0.78, Estimated GFR (MDRD) 70.00, BUN/ Creatinine Ratio 30.76, Glucose 117 H, Calcium 9.5, Total Bilirubin 0.6, AST 19 , ALT 18, Alkaline Phosphatase 77, Total Protein 6.4, Albumin 3.4, Globulin 3.0 , Albumin/Globulin Ratio 1.13 03/29/17 05:30: WBC 6.83, RBC 3.68 L, Hgb 13.2, Hct 37.8, MCV 102.7 H, MCH 35.9 H, MCHC 34.9, RDW Coeff of Agueda 11.9, Plt Count 170, Immature Gran % (Auto) 1.0, Neut % (Auto) 70.5, Lymph % (Auto) 20.1, [place] % (Auto) 7.6, Eos % (Auto) 0.7, Baso % (Auto) 0.1, Immature Gran # (Auto) 0.1, Neut # 4.8, Lymph # 1.4, [place] # 0.5, Eos # 0.1, Baso # 0.0 PLAN: Discharge to [facility] Living Diet: Regular as tolerated Activity: Activities as tolerated by the patient. Uses [facility] for Physical and Occupational Therapy, nursing visits including pain assessment, nutrition, vital signs. An appointment is scheduled with Dr. Tobin on at 3:30 pm Ms. Dhaliwal is alert and oriented x 3. She requires assistance of several staff members for transfer from the bed to the wheelchair or her power chair. She has severe weakness to the lower extremities due to muscular dystrophy. Leg braces are worn to the lower extremities with supportive footwear. Ms. Dhaliwal requires assistance with personal hygiene and dressing, but feeds herself without difficulty. She is incontinent at times of urine. Her appetite is fair with dietary intakes of 25-75%. She reported no bowel movement since prior to her admission. Miralax 17 grams was given today at the request of the patient. Skin is intact and free of decubitus ulcers, rashes, or irritation. Antelmo Tobin MD Charlette Rojas APRN
--- NOTE | 2017-04-01 09:13 | ECHO2D ---
Date of Exam: 03/29/17 Ordering Physician: DR. NELL UGARTE Room #: 109 Reason for Echo: CHEST PAIN, HYPERTENSION M-Mode Normal Adult Results LV Dimensions Normal Adult Results AoV Opening excursions >1.6 >1.6 LVEDD-base- 3.5-5.8 4.7 Ao root dimensions 2.0-3.7 3.2 LVESD-base- 3.1-4.6 L. Atrium dimensions 1.9-3.8 4.7 Post. Wall thickness 0.8-1.1 1.1 IV septum (thickness) 0.7-1.2 1.0 Post. Wall excursion 0.72-1.3 NORMAL Septal motion NORMAL Systolic motion R. Ventricular cavity 1.5-2.0 NORMAL LVEF 60% 74% Paradoxical septal wall motion NORMAL 2-D : 2-D M Mode Echocardiogram was performed using apical four chamber and left parasternal long and short axis views. Mitral, tricuspid and aortic valves appear to be normal. Contractility of the left ventricle seems to be normal, so is the cavity size. Enlarged Left atrial cavity size. Aortic root appears to be normal. There is no pericardial effusion. There is no thrombus noted in the left ventricular or left aortic cavity. No mitral valve prolapse noted. M-MODE: MV: NORMAL AV: NORMAL TV: NORMAL PV: CHAMBER SIZE: ENLARGED LEFT ATRIAL CAVITY WALL MOTION: NORMAL PERICARDIUM: NORMAL INTERPRETATION: 1. ENLARGED LEFT ATRIAL CAVITY 2. NORMAL LEFT VENTRICULAR CONTRACTILITY 3. NORMAL VALVES MTDD
--- NOTE | 2017-04-03 15:37 | DS ---
DATE OF SERVICE: 03/29/17 FINAL DIAGNOSIS: 1. Chest pain 2. Status post fall (03/13) 3. Hypertension 4. COPD 5. Muscular dystrophy, 196 6. Dyslipidemia 7. Osteoarthritis 8. Cataracts 9. Appendectomy LAST VITALS: Temperature 98.5, pulse 58, respiratory rate 24, Blood pressure 128/67 and pulse ox 100. DISCHARGE INSTRUCTIONS: Discharge to [facility]. [facility] for Physical and Occupational therapy, nursing visits including pain assessment, nutrition and vital signs. An appointment is scheduled with Dr. Tobin on April 03 at 3:30pm. MEDICATIONS AT DISCHARGE: Norvasc 5mg PO bedtime Brimonidine Tartrate 0.2% one drop OP bedtime Hydrochlorothiazide 25mg PO daily Centrum Silver 1 daily Mild of magnesia 30ml daily PRN Calcium Carbonate/Vitamin D3 600 units PO twice a day Bepreve one drop OP bedtime Benicar 40mg PO daily Protonix 40mg PO QDAC Micro-K capsule 10 meq PO daily Pravachol 80mg PO bedtime Betapace 40mg PO twice a day Travatan Z one drop OP bedtime ALLERGIES: No known allergies NEW PRESCRIPTIONS: Prednisone 10mg twice a day for 5 days Tramadol 50mg three times a day PRN for pain DIET INSTRUCTIONS: Regular as tolerated ACTIVITY: Activities as tolerated by the patient. Uses power chair. SMOKING: N/A DISEASE SPECIFIC EDUCATION: Steroids and risk of GI irritation and bone demineralization Prescriptions Home Health HOSPITAL COURSE: This is an 89 year old white female who lives at [facility]. She presented to the emergency department complaining of chest tightness and pain. It was more chest wall pain. She had fallen at [facility] a few weeks earlier while trying to transfer herself and hit on her rib cage. CT of the chest was normal in the emergency room and then later after admission we did a plan x-ray of the ribs which was also normal showing no acute fracture. Her pain was noncardiac. It is likely due to hematoma. She has very mild swelling on the left side. Her pain has been controlled with Toradol and she was given 2mg of Decadron on admission. Her labs are vital signs have been normal. She does experience weakness due to worsening muscular dystrophy. She would like to remain at [facility] as long as possible. We recently started home physical therapy through [facility] from our office. She will continue this when she goes home and we will see about getting her some more help as well. We send her home with Tramadol 50mg three times a day PRN #90 with no refill. She has been working with physical therapy here and had shown some improvement. Again her pain has been controlled and we will also give her Prednisone 10mg PO twice a day. Her labs have been stable. Today on day of discharge hgb 13.2, hct 37.8, plt count 170, WBC 6.83, BUN 24, creatinine 0.78, sodium 138, potassium 3.5. her vital signs have been stable temperature 96.5, heart rate 61, respirations 16, blood pressure 161/76 and pulse ox 97%. She does have someone that she pays to come in to [facility] in the morning and then in the evening. She will continue to do this. Again we will continue physical therapy through Home Health. All of her medications have remained the same with the exception of adding the Tramadol for pain. We will follow her in the office next week. The patient will be discharged in stable condition. TIME SPENT: More than 60 minutes. LINDSEY
--- NOTE | 2017-04-04 13:52 | PN ---
DATE OF SERVICE: 03/29/17 SUBJECTIVE: 89 year old white female hospitalized with chest pain. The patient's condition seems to have improved. The chest pain has subsided and echo was normal. Cardiac workup was negative. The patient has chest pain from muscular skeletal structure. She has muscular dystrophy, getting weak and unable to transfer now. She is very worried about it. The patient was seen and examined with Nurse Practitioner. The patient will be discharged to Assisted Living. CONDITION: Stable. TIME SPENT: More than 30 minutes. Plan and coordination of the patient's care discussed in the presence of nurse. LINDSEY
--- NOTE | 2017-04-04 13:53 | PN ---
03/27/17: Level 5 03/28/17: Intermediate 03/29/17: D as in discharge MTDD
== END 2017-03-29 16:00 | disposition home or self-care (01) | DRG 313 ==
LOC: ED 11:48 → MEDSURG A 17:03
PROVIDERS: ADMIT Internal Medicine; ATTEND Internal Medicine
DX: R07.9 Chest pain, unspecified (principal); G71.0 Muscular dystrophy; S29.9XXA Unspecified injury of thorax, initial encounter; I10 Essential (primary) hypertension; I51.7 Cardiomegaly; J44.9 Chronic obstructive pulmonary disease, unspecified; E78.5 Hyperlipidemia, unspecified; M19.90 Unspecified osteoarthritis, unspecified site; W19.XXXA Unspecified fall, initial encounter; Z79.899 Other long term (current) drug therapy
CPT/HCPCS: 36415; 80053; 82550; 83880; 84484; 85025; 87502; 93005; 93010; 97802; 99285

== ENCOUNTER 2017-04-30 10:36 | Inpatient (IN) ==
[2017-04-30] MEDS ORDERED: TYLENOL PO PRN (10:54)
[2017-04-30] MEDS ORDERED: VISTARIL INJ IM PRN (10:54)
[2017-04-30] MEDS ORDERED: ATROPINE SULFATE PFS IVP PRN (10:54)
[2017-04-30] MEDS ORDERED: NITROSTAT SL PRN (10:54)
[2017-04-30] MEDS ORDERED: MORPHINE 4 MG/ML VIAL IVP PRN (10:54)
[2017-04-30 11:23] VITALS: BMI 22.9
[2017-04-30] MEDS ORDERED: MILK OF MAGNESIA PO PRN (11:42)
[2017-04-30] MEDS ORDERED: NON-FORMULARY MEDICATION (Potassium Chloride [Klor-Con 10] 10 MEQ) PO SCH (11:45)
--- NOTE | 2017-04-30 11:47 | DI ---
EXAM: Chest one view, frontal view only. HISTORY: Chest pain. COMPARISON: 03/27/2017, 02/17/2016. FINDINGS: The heart size is normal. There is no pulmonary vascular congestion. Left diaphragm is e levated. The lungs are clear. No pleural effusion or pneumothorax is seen. No acute osseous abnorm ality is identified. Since the prior study, there has been no significant interval change. IMPRESSION: No acute cardiopulmonary process.
[2017-04-30] MEDS: BETAPACE PO SCH ×2 (13:38→20:20)
[2017-04-30] MEDS: ASPIRIN EC PO SCH (13:38)
[2017-04-30] MEDS: PROTONIX PO SCH (13:39)
[2017-04-30] MEDS: BEPOTASTINE BESILATE EACHEYE SCH ×2 (13:40→20:21)
--- NOTE | 2017-04-30 16:33 | RS.OTINEVL ---
Subjective - Patient information Date of Evaluation: 04/30/17 Date of Arrival on Unit: 04/30/17 Diagnosis: Chest pain Usual Living Arrangement: [facility] Living Arrangement Comments: pt has paid caregivers 7 am to 7 pm and is alone the rest of time. [facility] staff provides meals. Medical History: Hypertension, COPD Medical History Comments:: Muscular Dystrophy, heart murmur, anemia, psychiatric depression, mitral valve prolapse, hypotension Surgical History Comments:: appendectomy, Hemorrhoids, Subjective Information/ Patient Comments:: "No, they do not use a belt with me. I am just now getting over my soreness from the belt." - Level of function Prior to this admission, the patient could do the following:: Partially Dependent Ambulation Abilities prior to this admission: Pt reports she is able to stand at the sink if she can get her Right knee locked into extension. Current Level of Function: Partially Dependent Current Equipment Used at Home: motorized wheelchair, BSC, sliding board Pain Assessment - Pain Pain Score: 0 Interventions - Objective Patient Orientation: Person, Place, Time, Situation Current Interventions: IV's, Oxygen, Telemetry Interventions - ROM Right Upper Extremity AROM: WFL's Left Upper Extremity AROM: WFL's - Strength Right Upper Extremity Strength: Mild Weakness Left Upper Extremity Strength: Mild Weakness - Sensation Right Upper Extremity Sensation: Intact/Normal Left Upper Extremity Sensation: Intact/Normal Balance - Sitting Balance Static Sitting Balance: Fair Dynamic Sitting Balance: Fair - Comments Balance Assessment Comments: Sitting balance assessed only. ADL Skills - Self Feeding Self Feeding: Independent - Grooming Grooming: CGA - Bathing Bathing UE: CGA Bathing LE: CGA - Dressing Dressing UE: Min Assist Dressing LE: Min Assist - Toilet Management Toileting Management: Max Assist, 2 person assist Functional Mobility - Bed Mobility Rolling R/L: Independent Scooting: Independent Supine to Sit: Independent Sit to Supine: Independent - Transfers Sit to Stand: Not Tested Stand to Sit: Not Tested Stand Pivot Transfers: Not Tested - Ambulation Weight Bearing Status: FWB Assistive Device Used: Rolling Walker Assistance needed with Ambulation: Max Assist, 2 person assist - Safety Awareness Safety Awareness: Good Additional Treatment Performed - Time with patient Total treatment time: 22 Activities Patient Interests:: Watching Television, Puzzles/Games, Computer/Internet Patient Education Patient Education: Education of diagnosis, Home Exercise Program, Education of Plan of Care Teaching Recipient: Patient Teaching Methods: Discussion Assessment Problem List:: Decreased level of function, Decreased safety/Risk of falls, Weakness Rehab Potential: Good Further Therapy Indicated?: Yes Evaluation Complexity: HISTORY: Medium, EXAM OF BODY SYSTEMS: Medium, CLINICAL DECISION MAKING: Medium Short Term Goals - Goals GOAL 1: Pt to tolerate stand pivot transfer moderate assist of 2 from EOB to chair. Goal to be met by: 05/07/17 GOAL 2: Pt to increase strength of BUE to 4/5. Goal to be met by: 05/07/17 Progress towards goal: Not Met GOAL 3: Pt to increase toileting to moderate assistance. Goal to be met by: 05/07/17 Watch Assembly Instructor Goals GOAL 1: Pt to tolerate stand pivot transfer CGA from EOB to chair. Goal to be met by: 05/14/17 Progress towards goal: Not Met GOAL 2: Pt to increase strength of BUE to 4+/5. Goal to be met by: 05/14/17 Progress towards goal: Not Met GOAL 3: Pt to increase toileting to minimal assistance. Goal to be met by: 05/14/17 Progress towards goal: Not Met Plan Plan of Care: Therapeutic EX, Neuromuscular Re-Educ, Therapeutic Activity, Self- Care/Home Management Frequency of Treatment: 1-2 X day, as tolerated Duration of Treatment: 2 Weeks Anticipated Discharge Destination: Home Has the Physician been added for Co-signature?: Yes
--- NOTE | 2017-04-30 17:03 | CT ---
EXAM: CTA of the chest. History: Chest pain, elevated D-dimer. Comparison: Chest radiograph 04/30/2017, chest CT 03/27/2017 Technique: Multiplanar CT images through the thorax were obtained following administration of IV con trast. MIP images and 3-D reconstructions were also acquired. Findings: Heart is mildly enlarged. No pericardial effusion. Great vessels are unremarkable. The main pulmonary artery measures 3.3 cm in caliber. No pulmonary arterial filling defects. No pathologi jerome enlarged thoracic lymph nodes. Elevated left hemidiaphragm. No pleural fluid and no pneumothora x. There is interlobular septal thickening with subtle bilateral ground-glass changes. No suspiciou s lung masses or lung nodules. Within the visualized upper abdomen, no acute findings. Stable small benign left adrenal adenoma. T he visualized osseous structures unchanged with no acute osseous abnormalities identified. Degenerati ve changes of the bilateral glenohumeral joints. Impression: 1. No pulmonary embolism. 2. Mild cardiomegaly with early interstitial edema. There is no overt alveolar pulmonary edema. 3. Bibasilar subsegmental atelectasis. 4. Elevated left hemidiaphragm again noted.
[2017-04-30] MEDS: NORVASC PO SCH (20:19)
[2017-04-30] MEDS: PRAVACHOL PO SCH (20:20)
[2017-04-30] MEDS: TRAVATAN Z OP SCH (20:21)
[2017-04-30] MEDS: ALPHAGAN P 0.15% OP SCH (20:21)
[2017-04-30] MEDS ORDERED: [UNRECOGNIZED DRUG - OTHER] EACHEYE SCH (21:00)
[2017-04-30] MEDS ORDERED: NON-FORMULARY MEDICATION (Pravastatin Sodium [Pravastatin Sodium] 80 MG) PO SCH (21:00)
[2017-05-01] MEDS: PROTONIX PO SCH (05:44)
[2017-05-01] MEDS ORDERED: ASPIRIN EC PO SCH (08:00)
[2017-05-01] MEDS ORDERED: MICRO-K CAP PO SCH (09:00)
[2017-05-01] MEDS ORDERED: NON-FORMULARY MEDICATION (Olmesartan/Hydrochlorothiazide [Benicar Hct 40-25 Mg Tablet] 1 E PO SCH (09:00)
[2017-05-01] MEDS: ASPIRIN EC PO SCH (09:27)
[2017-05-01] MEDS: BETAPACE PO SCH ×2 (09:27→20:11)
[2017-05-01] MEDS: HYDROCHLOROTHIAZIDE PO SCH (09:30)
[2017-05-01] MEDS: BENICAR PO SCH (09:31)
[2017-05-01] MEDS: BEPOTASTINE BESILATE EACHEYE SCH ×2 (09:31→20:10)
[2017-05-01] MEDS: ALPHAGAN P 0.15% OP SCH ×2 (09:35→20:10)
--- NOTE | 2017-05-01 10:06 | PCM.PROG ---
Attending Provider: ATTENDING PROVIDER: Dr. NELL UGARTE DATE OF SERVICE: 05/01/17 SUBJECTIVE: This 89 year old WHITE/ F was hospitalized 04/30/17 with atrial fib with rapid ventricular response in sinus rhythm with rate of 50/min, no chest pain. No evidence of acute TN or ischemia. Cardiac markers are negative. REVIEW OF SYSTEMS: CONSTITUTIONAL: No night sweats. No fatigue, malaise, lethargy. No fever or chills. HEENT: Eyes: No visual changes. No eye pain. No eye discharge. ENT: No runny nose. No epistaxis. No sinus pain. No odynophagia. No congestion. RESPIRATORY: No cough, no congestion. No hemoptysis. No shortness of breath. CARDIOVASCULAR: No angina symptoms. No CHF symptoms. No atypical chest pain for CAD. No palpitations. No orthopnea.. GASTROINTESTINAL: No abdominal pain. No nausea or vomiting. No diarrhea or constipation. No hematemesis. No hematochezia. GENITOURINARY: No urgency. No frequency. No dysuria. No hematuria. No obstructive symptoms. No discharge. No pain. No significant abnormal bleeding. MUSCULOSKELETAL: No musculoskeletal pain; no joint swelling. NEUROLOGICAL: Awake, alert, oriented to time, place and person. No headache. No neck pain. No syncope. No seizures. No dizziness. PSYCHIATRIC: Not anxious. No depression. No suicidal thoughts. No homicidal thoughts. SKIN: No rash. No lesions. No wounds. ENDOCRINE: No unexplained weight loss. No weight gain. HEMATOLOGIC/LYMPHATIC: No anemia. No purpura. No petechiae. No prolonged or excessive bleeding. No palpable lymph nodes. PHYSICAL EXAMINATION: GENERAL: The patient is awake, alert and oriented, lying in bed in no distress. VITAL SIGNS: Temperature 97.4 F, Pulse 50, Respiratory Rate 18, BP 114/61, Pulse Ox 100% HEENT: Head normocephalic, atraumatic. Eyes: Extraocular muscles are intact. Pupils are equal, round and reactive to light and accommodation. Ears: No lesions. Nose appeared normal. Throat: No exudate or erythema. NECK: Supple. No JVD, no carotid bruit. No lymphadenopathy or thyromegaly. LUNGS: Clear to auscultation. Percussion note normal. Chest symmetrical. HEART: S1, S2, no S3. No murmurs. No cyanosis or clubbing. No ascites. Pulses: Dorsalis pedis and posterior tibial pulses +1 to +2 both sides. ABDOMEN: Soft. Non-tender. Bowel sounds active. No CVA tenderness. No mass felt. EXTREMITIES: No edema. NEUROLOGIC: No focal deficit. Cranial nerves II through XII are grossly intact. No headache, no double vision or headache. SKIN: Warm and dry. Intact. Turgor-normal. LYMPHATIC: No palpable lymph nodes/no lymphedema. MUSCULOSKELETAL: Normal joints with no swelling. Muscle tone is normal. LAB REVIEW: 05/01/17 04:30 05/01/17 04:30 05/01/17 04:30: Sodium 143, Potassium 3.9, Chloride 104, Carbon Dioxide 32 H, Anion Gap 10.9, BUN 19 H, Creatinine 0.72, Estimated GFR (MDRD) 76.00, BUN/ Creatinine Ratio 26.38, Glucose 109, Calcium 9.6, Total Bilirubin 0.7, AST 20, ALT 12, Alkaline Phosphatase 93 D, Total Protein 5.7 L, Albumin 3.1 L, Globulin 2.6, Albumin/Globulin Ratio 1.19 05/01/17 04:30: WBC 3.72 L, RBC 3.22 L, Hgb 11.7 L, Hct 34.2 L, MCV 106.2 H, MCH 36.3 H, MCHC 34.2, RDW Coeff of Agueda 12.9, Plt Count 142 D, Immature Gran % (Auto) 0.3, Neut % (Auto) 43.8, Lymph % (Auto) 41.1, [place] % (Auto) 12.4 H, Eos % (Auto) 1.6, Baso % (Auto) 0.8, Immature Gran # (Auto) 0.0, Neut # 1.6 L, Lymph # 1.5, [place] # 0.5, Eos # 0.1, Baso # 0.0 04/30/17 19:06: Total Creatine Kinase 69, Troponin I 0.0220 04/30/17 11:15: D-Dimer (Manual) 1086.04 04/30/17 11:15: B-Natriuretic Peptide 228 H 04/30/17 11:15: Sodium 142, Potassium 3.5, Chloride 102, Carbon Dioxide 30, Anion Gap 13.5, BUN 15, Creatinine 0.73, Estimated GFR (MDRD) 75.00, BUN/ Creatinine Ratio 20.54, Glucose 114, Calcium 10.2, Total Bilirubin 0.8, AST 23, ALT 15, Alkaline Phosphatase 118, Total Creatine Kinase 27, Troponin I 0.0150, Total Protein 6.8, Albumin 3.7, Globulin 3.1, Albumin/Globulin Ratio 1.19 04/30/17 11:15: WBC 5.09, RBC 3.86 L, Hgb 14.1, Hct 40.0, MCV 103.6 H, MCH 36.5 H, MCHC 35.3, RDW Coeff of Agueda 12.9, Plt Count 210, Immature Gran % (Auto) 0.2, Neut % (Auto) 52.6, Lymph % (Auto) 35.2, [place] % (Auto) 10.4 H, Eos % (Auto) 1.2 , Baso % (Auto) 0.4, Immature Gran # (Auto) 0.0, Neut # 2.7, Lymph # 1.8, [place] # 0.5, Eos # 0.1, Baso # 0.0 04/30/17 11:10: Puncture Site R rad, O2 Saturation 97.0, ABG pH 7.484 H, ABG pCO2 36.6, ABG pO2 83.0 L, ABG HCO3 27.5 H, ABG Total CO2 29 H, ABG Base Excess 4 H, [place] Test +, FiO2 % 21.0 04/30/17 11:00: Urine Color Yellow, Urine Clarity Clear, Urine pH 7.5, Ur Specific [place] 1.015, Urine Protein Negative, Urine Glucose (UA) Negative, Urine Ketones Negative, Urine Blood Negative, Urine Nitrite Negative, Urine Bilirubin Negative, Urine Urobilinogen 0.2, Ur Leukocyte Esterase Negative ASSESSMENT: 1. Paroxysmal atrial fibrillation 2. Chest pain seems to be noncardiac 3. Muscular dystrophy PLAN: 1. Continue same treatment with Sotalol 40 mg twice a day. 2. The patient declines the use of any Novel blood thinners. 3. Will continue aspirin. Plan and coordination of the patient's care discussed in the presence of Elementary Tutor and nurse. CONDITION: STABLE SCRIBED BY: ARA JEFFERSON Iron Worker scribed while in presence of service performed by Dr. NELL UGARTE on 05/01/17 ([id number])
--- NOTE | 2017-05-01 15:07 | RS.PTINEVL ---
Subjective - Patient information Date of Evaluation: 05/01/17 Date of Arrival on Unit: 04/30/17 [facility]mitted From:: [facility] Diagnosis: chest pain, afib Usual Living Arrangement: [facility] Living Arrangement Comments: pt has paid caregivers approx 7 hours per day. [facility] staff provides meals. Home Environment: Level/No stairs Medical History: Hypertension, COPD Medical History Comments:: Muscular Dystrophy, anemia, mitral valve prolapse Surgical History Comments:: appendectomy, Hemorrhoids, Medications: see chart Subjective Information/ Patient Comments:: pt states she would try to get up in chair today. - Level of function Abilities prior to this admission: pt transferred with assist of caregiver. Occasionally used sliding board. pt has been unable to amb for quite some time according to patient Current Equipment Used at Home: motorized wheelchair, BSC, sliding board Interventions - Objective Patient Orientation: Person, Place, Time, Situation Current Interventions: Telemetry Range of Motion - ROM Right Upper Extremity AROM: WFL's Left Upper Extremity AROM: WFL's Right Lower Extremity AROM: Moderate limitation (pt with decreased knee ext) Left Lower Extremity AROM: Moderate limitation (pt with decreased knee ext) Muscle Strength - Muscle Strength Right Upper Extremity Strength: Mild Weakness (grossly 4+/5) Left Upper Extremity Strength: Mild Weakness (grossly 4+/5) Right Lower Extremity Strength: Mild Weakness (hip flex 3+/5, knee ext 2+/5, flex 3-/5, no active DF/PF) Left Lower Extremity Strength: Mild Weakness (hip flex 3+/5, knee ext 2+/5, flex 3-/5, no active DF/PF) Sensation - Sensation Right Upper Extremity Sensation: Intact/Normal Left Upper Extremity Sensation: Intact/Normal Right Lower Extremity Sensation: Impaired (numbness and tingling BLE) Left Lower Extremity Sensation: Impaired (numbness and tingling BLE) Palpation Palpation Findings: None/Normal Balance - Sitting Balance and Reactions Static Sitting Balance: Good Dynamic Sitting Balance: Fair Sitting Equilibrium Reactions: Delayed Left, Delayed Right - Standing Balance and Reactions Static Standing Balance: Poor - Comments Balance Assessment Comments: static standing at parallel bars with CGA, unable to maintain with any challenges. Functional Mobility - Bed Mobility Rolling R/L: Min Assist Supine to Sit: Min Assist Sit to Supine: Min Assist - Transfers Comments:: pt unable to amb. bed to w/c transfer with sliding board with mod x 1-2 - Safety Awareness Safety Awareness: Fair Treatment time - Time with patient Total treatment time: 32 Patient Education - Education Patient Education: Activity Modification, Education of Plan of Care Teaching Recipient: Patient Teaching Methods: Discussion (Discussion with patient that staff must use gait belt when assisting her with transfers. Discussed POC.) Assessment - Assessment Problem List:: Decreased level of function, Requires training/education, Decreased safety/Risk of falls, Weakness Rehab Potential: Good Further Therapy Indicated?: Yes Comments: pt goal is to not lose more strength while in the hospital. Evaluation Complexity: HISTORY: Medium (muscular dystrophy, ), EXAM OF BODY SYSTEMS: Medium (muscular, neuromuscular, cardiovascular), CLINICAL PRESENTATION : Medium (evolving), CLINICAL DECISION MAKING: Medium Short Term Goals GOAL #1: pt demonstrate independence with rolling and scooting up in bed. Goal to be met by: 05/03/17 GOAL #2: pt transfer sup to/from sit CGA Goal to be met by: 05/03/17 GOAL #3: sit to/from stand with parallel bars with min x 1 Goal to be met by: 05/03/17 GOAL #4: Transfer bed to/from chair with sliding board with min to mod x 1 Goal to be met by: 05/03/17 Feather Drying Machine Operator Goals GOAL #1: pt transfer sup to/from sit SBA Goal to be met by: 05/05/17 GOAL #2: pt transfer bed to/from chair with sliding board with min x 1 Goal to be met by: 05/05/17 Progress towards goal: Not Met GOAL #3: maintain dyn sitting balance reaching across midline and with resistance Goal to be met by: 05/05/17 Progress towards goal: Not Met Plan Plan of Care: Therapeutic EX, Therapeutic Activity Frequency of Treatment: 1-2 X day, as tolerated Duration of Treatment: 4 days Anticipated [facility]charge Destination: [facility] Has the Physician been added for Co-signature?: Yes
[2017-05-01] MEDS: PRAVACHOL PO SCH (20:10)
[2017-05-01] MEDS: NORVASC PO SCH (20:10)
[2017-05-01] MEDS: TRAVATAN Z OP SCH (20:10)
[2017-05-02] MEDS: PROTONIX PO SCH (05:45)
[2017-05-02] MEDS ORDERED: DECADRON 4 MG/ML SDV IM STA (08:11)
[2017-05-02] MEDS: ALPHAGAN P 0.15% OP SCH ×2 (09:13→20:49)
[2017-05-02] MEDS: HYDROCHLOROTHIAZIDE PO SCH (09:14)
[2017-05-02] MEDS: BETAPACE PO SCH ×2 (09:14→20:50)
[2017-05-02] MEDS: K-DUR PO SCH ×3 (09:14→17:10)
[2017-05-02] MEDS: ASPIRIN EC PO SCH (09:14)
[2017-05-02] MEDS: BENICAR PO SCH (09:15)
[2017-05-02] MEDS: BEPOTASTINE BESILATE EACHEYE SCH ×2 (09:16→20:50)
--- NOTE | 2017-05-02 15:46 | PN ---
DATE OF SERVICE: 05/02/17 SUBJECTIVE: 89 year old white female hospitalized with chest pain and atrial fibrillation. The patient has no atrial fibrillation anymore. She is in sinus bradycardia. No chest pain. The patient does not have any symptoms of CHF or CAD. REVIEW OF SYSTEMS: CONSTITUTIONAL: No night sweats. No fatigue, malaise, lethargy. No fever or chills. HEENT: Eyes: No visual changes. No eye pain. No eye discharge. ENT: No runny nose. No epistaxis. No sinus pain. No sore throat. No odynophagia. No congestion. RESPIRATORY: No cough, no congestion. No hemoptysis. No shortness of breath. CARDIOVASCULAR: No angina symptoms. No CHF symptoms. No atypical chest pain for CAD. No palpitations. No orthopnea. GASTROINTESTINAL: No abdominal pain. No nausea or vomiting. No diarrhea or constipation. No hematemesis. No hematochezia. GENITOURINARY: No urgency. No frequency. No dysuria. No hematuria. No obstructive symptoms. No discharge. No pain. No significant abnormal bleeding. MUSCULOSKELETAL: No musculoskeletal pain; no joint swelling. Weakness from muscular dystrophy. NEUROLOGICAL: No headache. No neck pain. No syncope. No seizures. No dizziness. PSYCHIATRIC: Not anxious. No depression. No suicidal thoughts. No homicidal thoughts. SKIN: No rash. No lesions. No wounds. ENDOCRINE: No unexplained weight loss. No weight gain. HEMATOLOGIC/LYMPHATIC: No anemia. No purpura. No petechiae. No prolonged or excessive bleeding. No palpable lymph nodes. PHYSICAL EXAMINATION: GENERAL: The patient is oriented to time, place and person. VITAL SIGNS: Temperature 97.8, pulse 60, respiratory rate 16, blood pressure 115/70 and pulse ox 96%. HEENT: Head normocephalic, atraumatic. Eyes: Extraocular muscles are intact. Pupils are equal, round and reactive to light and accommodation. Ears: No lesions. Nose appeared normal. Throat: No exudate or erythema. NECK: Supple. No JVD, no carotid bruit. No lymphadenopathy or thyromegaly. LUNGS: Decreased breath sounds but clear to auscultation. Percussion note normal. Chest symmetrical. HEART: S1, S2, no S3. No murmurs. No cyanosis or clubbing. No ascites. Pulses: Dorsalis pedis and posterior tibial pulses +1 to +2 both sides. ABDOMEN: Soft. Nontender. Bowel sounds active. No CVA tenderness. No mass felt. EXTREMITIES: No edema. Full range of motion of all extremities, equal. NEUROLOGIC: No focal deficit. Cranial nerves II through XII are grossly intact. No headache, no double vision or headache. SKIN: Not dry. Intact. Turgor - normal. LYMPHATIC: No palpable lymph nodes/no lymphedema. MUSCULOSKELETAL: Normal joints with no swelling. Muscle tone is normal. LABS: Hgb 10.8, hct 31,W BC 3,300 normal differential, creatinine 0.6, BUN 20, potassium 3.4. ASSESSMENT: 1. Chest pain resolved 2. Atrial fibrillation paroxysmal 3. Muscular dystrophy PLAN: 1. Will given 1 cc Decadron IM 2. K Tab 20 meq three times a day 3. Daily CBC and CMP CONDITION: Stable. TIME SPENT: More than 30 minutes. Plan and coordination of the patient's care discussed in the presence of nurse. LINDSEY
[2017-05-02] MEDS: TRAVATAN Z OP SCH (20:49)
[2017-05-02] MEDS: NORVASC PO SCH (20:50)
[2017-05-02] MEDS: PRAVACHOL PO SCH (21:04)
[2017-05-03] MEDS: PROTONIX PO SCH (06:02)
[2017-05-03] MEDS: BEPOTASTINE BESILATE EACHEYE SCH (08:51)
[2017-05-03] MEDS: ASPIRIN EC PO SCH (08:51)
[2017-05-03] MEDS: BETAPACE PO SCH (08:51)
[2017-05-03] MEDS: ALPHAGAN P 0.15% OP SCH (08:51)
[2017-05-03] MEDS: K-DUR PO SCH ×2 (08:51→12:31)
[2017-05-03] MEDS: BENICAR PO SCH (08:52)
[2017-05-03] MEDS: HYDROCHLOROTHIAZIDE PO SCH (08:53)
--- NOTE | 2017-05-03 09:01 | PCM.PROG ---
Attending Provider: ATTENDING PROVIDER: Dr. NELL UGARTE This patient is seen with Charlette Rojas, Nurse Practitioner. DATE OF SERVICE: 05/03/17 SUBJECTIVE: This 89 year old WHITE/ F was hospitalized 04/30/17. The patient is sitting up in bed. She is ready to go home. She has been eating well has been working with PT. REVIEW OF SYSTEMS: CONSTITUTIONAL: Weakness. No night sweats. No malaise, lethargy. No fever or chills. HEENT: Eyes: No visual changes. No eye pain. No eye discharge. ENT: No runny nose. No epistaxis. No sinus pain. No odynophagia. No congestion. RESPIRATORY: No cough, no congestion. No hemoptysis. No shortness of breath. CARDIOVASCULAR: No angina symptoms. No CHF symptoms. No atypical chest pain for CAD. No palpitations. No orthopnea.. GASTROINTESTINAL: No abdominal pain. No nausea or vomiting. No diarrhea or constipation. No hematemesis. No hematochezia. GENITOURINARY: No urgency. No frequency. No dysuria. No hematuria. No obstructive symptoms. No discharge. No pain. No significant abnormal bleeding. MUSCULOSKELETAL: No musculoskeletal pain; no joint swelling. NEUROLOGICAL: Awake, alert, oriented to time, place and person. No headache. No neck pain. No syncope. No seizures. No dizziness. PSYCHIATRIC: Not anxious. No depression. No suicidal thoughts. No homicidal thoughts. SKIN: No rash. No lesions. No wounds. ENDOCRINE: No unexplained weight loss. No weight gain. HEMATOLOGIC/LYMPHATIC: No anemia. No purpura. No petechiae. No prolonged or excessive bleeding. No palpable lymph nodes. PHYSICAL EXAMINATION: GENERAL: The patient is awake, alert and oriented, sitting up in bed in no distress. VITAL SIGNS: Temperature 97.4 F, Pulse 68, Respiratory Rate 18, BP 135/67, Pulse Ox 97% HEENT: Head normocephalic, atraumatic. Eyes: Extraocular muscles are intact. Pupils are equal, round and reactive to light and accommodation. Ears: No lesions. Nose appeared normal. Throat: No exudate or erythema. NECK: Supple. No JVD, no carotid bruit. No lymphadenopathy or thyromegaly. LUNGS: Clear to auscultation. Percussion note normal. Chest symmetrical. HEART: S1, S2, no S3. No murmurs. No cyanosis or clubbing. No ascites. Pulses: Dorsalis pedis and posterior tibial pulses +1 to +2 both sides. ABDOMEN: Soft. Non-tender. Bowel sounds active. No CVA tenderness. No mass felt. EXTREMITIES: No edema. Full range of motion of all extremities, equal. NEUROLOGIC: No focal deficit. Cranial nerves II through XII are grossly intact. No headache, no double vision or headache. SKIN: Not dry. Intact. Turgor-normal. LYMPHATIC: No palpable lymph nodes/no lymphedema. MUSCULOSKELETAL: Normal joints with no swelling. Muscle tone is normal. LAB REVIEW: 05/03/17 04:30 05/03/17 04:30 05/03/17 04:30: Sodium 141, Potassium 3.8, Chloride 105, Carbon Dioxide 27, Anion Gap 12.8, BUN 19 H, Creatinine 0.64, Estimated GFR (MDRD) 87.00, BUN/ Creatinine Ratio 29.68, Glucose 115, Calcium 9.5, Total Bilirubin 0.6, AST 24, ALT 14, Alkaline Phosphatase 97, Total Protein 6.2, Albumin 3.3 L, Globulin 2.9 , Albumin/Globulin Ratio 1.14 05/03/17 04:30: WBC 5.29, RBC 3.34 L, Hgb 12.1, Hct 34.6 L, MCV 103.6 H, MCH 36.2 H, MCHC 35.0, RDW Coeff of Agueda 12.6, Plt Count 187, Immature Gran % (Auto) 0.4, Neut % (Auto) 75.6, Lymph % (Auto) 18.5, [place] % (Auto) 5.3, Eos % (Auto) 0.0, Baso % (Auto) 0.2, Immature Gran # (Auto) 0.0, Neut # 4.0, Lymph # 1.0, [place] # 0.3 L, Eos # 0.0, Baso # 0.0 ASSESSMENT: 1. Paroxysmal atrial fibrillation 2. Chest pain seems to be noncardiac 3. Muscular dystrophy PLAN: 1. D/C home 2. Meds unchanged with exception of potassium 20 mEq daily 3. Declines Physical Therapy at home at this time 4. The patient refuses all Novel blood thinners and Coumadin. Risks associated with atrial fib discussed in detail. The patient demonstrates understanding. Plan and coordination of the patient's care discussed in the presence of Special Weapons Unit Officer and nurse. CONDITION: Stable SCRIBED BY: ARA JEFFERSON Environmental Compliance Officer scribed while in presence of service performed by Dr. Ugarte/Charlette Rojas APRN on 05/03/17 ([id number])
--- NOTE | 2017-05-03 09:57 | CM.DICTOOL ---
ADMISSION: 04/30/17 10:36 DISCHARGE: 2017 DATE OF SERVICE: 05/03/17 FINAL DIAGNOSIS CHEST PAIN ATRIAL FIB WITH RVR COPD DYSLIPIDEMIA MUSCULAR DYSTROPHY WITH INCREASING LEG WEAKNESS ANEMIA GERD APPENDECTOMY CATARACT EXTRACTION LAST ECHO: ENLARGED LEFT ATRIAL CAVITY LVEF 74% LAST VITALS Temp Pulse Resp BP Pulse Ox 97.4 F L 68 18 135/67 97 05/03/17 06:00 05/03/17 06:00 05/03/17 06:00 05/03/17 06:00 05/03/17 06:00 ACTIVE HOME MEDICATIONS Amlodipine Besylate (Norvasc) 5 mg PO BEDTIME [facility] Last Admin: 05/02/17 20:50 Dose: 5 mg Aspirin (Aspirin Ec) 81 mg PO QAM [facility] Last Admin: 05/03/17 08:51 Dose: 81 mg Brimonidine Tartrate (Alphagan P 0.15%) 1 drop OP BID [facility] Last Admin: 05/03/17 08:51 Dose: 1 drop Magnesium Hydroxide (Milk Of Magnesia) 30 ml PO DAILY PRN PRN Reason: Constipation Non-Formulary Medication (Bepotastine Besilate [Bepreve]) 1 drop EACHEYE BID [facility] Last Admin: 05/03/17 08:51 Dose: 1 drop Olmesartan/Hydrochlorothiazide (Benicar/HCT) 40-25 mg PO DAILY [facility] Last Admin: 05/03/17 08:52 Dose: 40-25 mg Pantoprazole Sodium (Protonix) 40 mg PO QDAC [facility] Last Admin: 05/03/17 06:02 Dose: 40 mg Potassium Chloride (K-Dur) 20 meq DAILY [facility] Last Admin: 05/03/17 08:51 Dose: 20 meq (DOSE INCREASED) Pravastatin Sodium (Pravachol) 80 mg PO BEDTIME [facility] Last Admin: 05/02/17 21:04 Dose: 80 mg Sotalol HCl (Betapace) 40 mg PO BID [facility] Last Admin: 05/03/17 08:51 Dose: 40 mg Travoprost (Travatan Z) 1 drop OP BEDTIME [facility] Last Admin: 05/02/17 20:49 Dose: 1 drop Calcium Carbonate/Vitamin D3 600 unit PO BID Last Admin: Multivitamin/lycopen/lutein (Centrum Silver) 1 daily Last Admin: [place] 3 (Fish OIl 1000 mg ) 1 daily Last Admin: ALLERGIES No Known Allergies Allergy (Verified 03/27/17 12:02) NEW PRESCRIPTIONS: K-dur 20 meq daily with meal SMOKING: Not Applicable DISEASE SPECIFIC EDUCATION: Chest Pain Medication change Continue home therapy Atrial Fibrillation and use of Novel blood thinner (patient declines) LAB REVIEW: 05/03/17 04:30 05/03/17 04:30 05/03/17 04:30: Sodium 141, Potassium 3.8, Chloride 105, Carbon Dioxide 27, Anion Gap 12.8, BUN 19 H, Creatinine 0.64, Estimated GFR (MDRD) 87.00, BUN/ Creatinine Ratio 29.68, Glucose 115, Calcium 9.5, Total Bilirubin 0.6, AST 24, ALT 14, Alkaline Phosphatase 97, Total Protein 6.2, Albumin 3.3 L, Globulin 2.9 , Albumin/Globulin Ratio 1.14 05/03/17 04:30: WBC 5.29, RBC 3.34 L, Hgb 12.1, Hct 34.6 L, MCV 103.6 H, MCH 36.2 H, MCHC 35.0, RDW Coeff of [place]ued[place] 12.6, Plt Count 187, Immature Gran % (Auto) 0.4, Neut % (Auto) 75.6, Lymph % (Auto) 18.5, [place] % (Auto) 5.3, Eos % (Auto) 0.0, Baso % (Auto) 0.2, Immature Gran # (Auto) 0.0, Neut # 4.0, Lymph # 1.0, [place] # 0.3 L, Eos # 0.0, Baso # 0.0 PLAN: [facility]charge to [facility] Diet: Resume as tolerated Activity: Resume as tolerated. Continue to do exercises and home therapy program at least daily Up with leg braces in place Continue medications as listed on nursing discharge information sheet Medication change: Increase potassium (K-dur) to 20 meq daily An appointment is scheduled with Dr. Tobin/Charlette Rojas APRN on May 10, 2017 at 11 am Ms. Dhaliwal is alert and oriented x 3. She denies chest pain, palpitations or shortness of breath. She denies abdominal pain or nausea. Last bowel movement on the . Meal intakes are fair at 25-50%. Ms. Dhaliwal is independent with feeding, but requires assistance of at least 1 staff member with transfers to the bedside commode or Ashley chair. She is partially dependent with activities of daily living due to severe leg weakness due to muscular dystrophy. She requires bilateral leg braces for any transfers or standing. She is unable to ambulate and relies on a "ashley chair" (motorized scooter) for mobility needs. Skin is intact and free of decubitus ulcers or rashes. She is incontinent of urine at times and wears depends briefs. Ms. Dhaliwal has a private caregiver 6- 7 hours daily. She has declined offer of home health. Antelmo Tobin MD Charlette Rojas APRN
[2017-05-03 10:10] VITALS: BP 119/54; TEMP 97.8
--- NOTE | 2017-05-07 09:14 | PN ---
DATE OF SERVICE: 05/03/17 SUBJECTIVE: 89 year old white female hospitalized with chest pain. The patient doesn't have any chest pain. She is in sinus rhythm all along all 3-4 days she was here. Cardiovascular status is stable. The patient was seen and examined with Nurse Practitioner. The patient's potassium is normal. CONDITION: Stable PLAN: 1. The patient will be discharged home. TIME SPENT: More than 30 minutes. Plan and coordination of the patient's care discussed in the presence of nurse. LINDSEY
--- NOTE | 2017-05-07 09:37 | PN ---
04/30/17: Level 5 05/01/17: Intermediate 05/02/17: Intermediate 05/03/17: D as in discharge MTDD
--- NOTE | 2017-05-24 14:33 | HP ---
DATE OF SERVICE: 04/30/17 HISTORY OF PRESENT ILLNESS: This 89-year-old female presented with complaint of feeling like her heart is fast times three days. She has chest pain, atypical, sharp, non radiating, center of chest. Shortness of breath with exertion. No PND, no orthopnea. PAST MEDICAL HISTORY: COPD Dyslipidemia GERD Atrial fibrillation Muscular dystrophy Anemia Chronic cough Muscle weakness with leg braces Atrial fibrillation PAST SURGICAL HISTORY: Appendectomy Right knee Tonsillectomy REVIEW OF SYSTEMS: CONSTITUTIONAL: Positive for fatigue. No fever. HEENT: No sinus drainage, no sore throat. RESPIRATORY: No cough, no congestion. No hemoptysis. CARDIOVASCULAR: Positive for palpitations, atypical chest pain for CAD and shortness of breath. No angina, CHF symptoms. GASTROINTESTINAL: No melena or abdominal pain. No GERD. GENITOURINARY: No hematuria, no polyuria. RESIDENT INTERN: No blackout, no dizziness, no headache, no double vision. Gait - wheelchair. MUSCULOSKELETAL: Osteoarthritis pain. No joint swelling. ENDOCRINE: No weight loss, no weight gain. SKIN: Not dry, no rash. PSYCHIATRIC: Anxious. No depression, no suicidal thoughts, no homicidal thoughts. SOCIAL HISTORY: Nonsmoker. . No alcohol use. 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 No drug use. Nonsmoker. No alcohol use. FAMILY HISTORY: Father - heart. Mother - heart. MEDICATIONS: Sotalol 80 mg - take 0.5 tablet p.o. two times per day - half tablet twice a day Fish oil one daily Amlodipine 5 mg one tablet p.o. once daily Pantoprazole 40 mg one p.o. once daily Pravastatin 80 mg one p.o. daily at bedtime Benicar HCT 40-25 mg a.m. one p.o. daily Klor-Con 10 mEq p.o. one time per day with food Travatan 0.004% drops one drop into both eyes daily in the evening Alphagan 0.1 % drop into affected eye every 8 hours Bufferin 81 mg one daily Calcium b.i.d. Vitamins ALLERGIES: NKDA PHYSICAL EXAMINATION: V/S: Pulse 112, BP 120/78, 02 sat 97%. Height 5'6". GENERAL APPEARANCE: Oriented times three. HEENT: Normal. NECK: No JVP, no bruits. RESPIRATORY: Lungs - decreased breath sounds. CARDIOVASCULAR: Irregular. S1, S2, no S3, no murmurs. No cyanosis, clubbing. No ascites. GI/ABDOMEN: No tenderness. Bowel sounds are active. EXTREMITIES: No edema, pulses +1, equal. RESIDENT INTERN: Deep tendon reflexes, sensory, motor and gait all normal. RECTAL/PELVIC: Patient refused colonoscopy. Pelvic - patient refused. LABS: Chest x-ray shows no acute cardiopulmonary process. D. dimer 1,086. ABGs on room air 02 sat 97, Tc02 29, bicarb 27.5, base excess of 4, p02 83, pc02 36.6, pH 7.484. Sodium 142, potassium 3.5, BUN 15, creatinine 0.73, GFR 75, total bili 0.8, AST 23, ALT 15. Alkaline phosphatase 118, BNP 228, white count 5.09, hemoglobin 14.1, hematocrit 40, platelets 210. Urine is normal. ASSESSMENT: 1. CHEST PAIN/ATRIAL FIB WITH RVR 2. COPD 3. DYSLIPIDEMIA 4. GERD 5. ATRIAL FIBRILLATION 6. MUSCULAR DYSTROPHY 7. ANEMIA 8. CHRONIC COUGH 9. WEAKNESS OF MUSCLES, WASTING, WEARS LEG BRACES WITH SPECIAL SHOES PLAN: 1. Admit 2. EKG reviewed and discussed 3. Atrial fibrillation 4. Routine telemetry orders 5. D. dimer 6. BNP 7. Continue all home medications 8. Regular diet 9. ABG 10. UA with culture and sensitivity TIME SPENT: More than 70 minutes. MTDD
--- NOTE | 2017-05-30 11:16 | DS ---
DATE OF SERVICE: 05/03/17 FINAL DIAGNOSIS: 1. Chest pain 2. Atrial fibrillation with RVR 3. COPD 4. Dyslipidemia 5. Muscular Dystrophy with Increasing leg weakness 6. Anemia 7. GERD 8. Appendectomy 9. Cataract extraction LAST ECHO: Enlarged left atrial cavity LVEF 74% LAST VITALS: Temperature 97.4, pulse 68, respiratory rate 18, blood pressure 135/67 and pulse ox 97%. DISCHARGE INSTRUCTIONS: Discharge to [facility]. Continue medications as listed on nursing discharge information sheet. An appointment is scheduled with Dr. Tobin/ Charlette Rojas APRN on May 10, 2017 at 11am. MEDICATIONS AT DISCHARGE: Norvasc 5mg Po bedtime Aspirin 81mg PO daily Alphagan P 0.15% one drop OP twice a day Milk of Magnesia 30ml PO daily PRN Bepreve 1 drop each eye twice a day Benicar 40-25mg PO daily Protonix 40mg PO QDAC K-Dur 20meq Daily (dose increased) Pravachol 80mg Po bedtime Betapace 40mg PO twice a day Travatan one drop OP bedtime Calcium Carbonate/ Vitamin D3 600 unit PO twice a day Centrum Silver 1 daily Fish Oil 1000mg one daily ALLERGIES: No known allergies NEW PRESCRIPTIONS: K-Dur 20meq daily with meal DIET INSTRUCTIONS: Resume as tolerated ACTIVITY: Resume as tolerated. Continue to do exercises and home therapy program at least daily up with leg braces in place. SMOKING: Not applicable DISEASE SPECIFIC EDUCATION: Chest pain Medication change Continue home therapy Atrial fibrillation and use of Novel blood thinner (patient declines) HOSPITAL COURSE: This is an 89 year old white female who was a direct admitted from out office. In our office she presented with shortness of breath, palpitations, generalized weakness. She was visually short of breath and in mild respiratory distress. EKG in the office revealed atrial fibrillation with rapid ventricular response. She has a history of paroxysmal atrial fibrillation but had previously refused to be on any sort of blood thinner. She was admitted given oxygen PRN and placed on routine orders. She had been on Sotalol 40mg twice a day to help control her rate previously. This was continued. She was given one dose of Digoxin 0.125mg IV once. Her rate responded since then her rate has been controlled. Today on day of discharge her rate is 68 and is in normal sinus rhythm. Blood pressure was low yesterday although she does run on the low side. However it does fluctuate. Blood pressure at time of discharge 135/67. She was symptomatic yesterday with her hypotension. She does have muscular dystrophy with increasing weakness. PT was consulted while she was here. She had been previously doing PT at home. Upon discharge she states that she does not want to do physical therapy any longer at home at her assisted living at [facility]. Once her rate became controlled she was not experiencing any chest pain or tightness. Her weakness somewhat improved considering that she does have muscular dystrophy. The patient still refuses to take any Novel blood thinners or Coumadin. She feels she is at risk for falls and doesn't want to take any risk with any blood thinners. The risk of atrial fibrillation in regards to blood clots has been discussed in great detail and the patient demonstrates understanding. She will be discharged. Her medications will remain unchanged with the exception of Potassium 20meq as she did experience some hypokalemia with Potassium of 3.3 yesterday. She is discharged in stable condition and she will continue to do her exercises at home. We will see her in the office early next week. TIME SPENT: More than 60 minutes. LINDSEY
== END 2017-05-03 13:15 | disposition home or self-care (01) | DRG 313 ==
LOC: MEDSURG A 10:36
PROVIDERS: ADMIT Internal Medicine; ATTEND Internal Medicine
DX: R07.89 Other chest pain (principal); G71.0 Muscular dystrophy; I48.0 Paroxysmal atrial fibrillation; J44.9 Chronic obstructive pulmonary disease, unspecified; R06.02 Shortness of breath; E78.5 Hyperlipidemia, unspecified; D64.9 Anemia, unspecified; K21.9 Gastro-esophageal reflux disease without esophagitis; R00.1 Bradycardia, unspecified; Z79.899 Other long term (current) drug therapy; Z90.49 Acquired absence of other specified parts of digestive tract
CPT/HCPCS: 36415; 80053; 81001; 82550; 82803; 83880; 84484; 85025; 85379; 87081; 93005; 93010; 99223; 99232; 99239